=== PATIENT | female | born 1955 | race Caucasian/White ===

== ENCOUNTER 2018-02-16 10:22 | Outpatient (CLI) | payer OTHER | END 2018-02-16 15:48 | disposition home or self-care (01) | LOC: RAD 10:22 | DX: M54.5 Low back pain (principal); I11.9 Hypertensive heart disease without heart failure ==

== ENCOUNTER 2018-10-19 07:09 | Outpatient (CLI) | payer OTHER | END 2018-10-19 07:30 | disposition home or self-care (01) | LOC: RAD 07:09 → TOM 07:30 | DX: G44.221 Chronic tension-type headache, intractable (principal); R51 Headache; M54.2 Cervicalgia; M54.5 Low back pain | CPT/HCPCS: 72141 ==

== ENCOUNTER 2019-03-16 08:23 | Outpatient (CLI) | payer OTHER | END 2019-03-16 08:54 | disposition home or self-care (01) | LOC: RAD 08:23 → TOM 08:30 → RAD 08:54 | DX: R10.84 Generalized abdominal pain (principal); N83.209 Unspecified ovarian cyst, unspecified side ==

== ENCOUNTER 2019-04-24 13:58 | Outpatient (CLI) | payer OTHER | END 2019-04-24 14:00 | disposition home or self-care (01) | LOC: RAD 13:58 | DX: J18.0 Bronchopneumonia, unspecified organism (principal) ==

== ENCOUNTER → 2019-09-05 | Outpatient (CLI) | payer OTHER | END | disposition home or self-care (01) | LOC: MRI 07:45 | DX: M51.27 Other intervertebral disc displacement, lumbosacral region (principal) | CPT/HCPCS: 72148 ==

== ENCOUNTER 2019-10-01 11:07 | Outpatient (CLI) | payer OTHER | END 2019-10-01 11:10 | disposition home or self-care (01) | LOC: SONOGRAMA 11:07 | DX: K57.30 Diverticulosis of large intestine without perforation or abscess without bleeding (principal); R10.13 Epigastric pain ==

== ENCOUNTER 2020-07-11 08:04 | Outpatient (CLI) | payer OTHER | END 2020-07-11 08:40 | disposition home or self-care (01) | LOC: RAD 08:04 | PROVIDERS: ATTEND Internal Medicine | DX: M54.5 Low back pain (principal); M53.3 Sacrococcygeal disorders, not elsewhere classified; N29 Other disorders of kidney and ureter in diseases classified elsewhere ==

== ENCOUNTER 2021-03-24 09:05 | Outpatient (CLI) | payer OTHER | END 2021-03-24 09:16 | disposition home or self-care (01) | LOC: RAD 09:05 | PROVIDERS: ATTEND Internal Medicine | DX: M51.36 Other intervertebral disc degeneration, lumbar region (principal); M46.1 Sacroiliitis, not elsewhere classified ==

== ENCOUNTER 2021-04-22 07:58 | Outpatient (CLI) | payer OTHER | END 2021-04-22 08:12 | disposition home or self-care (01) | LOC: TOM 07:58 | PROVIDERS: ATTEND Internal Medicine Gastroenterology | DX: K57.30 Diverticulosis of large intestine without perforation or abscess without bleeding (principal); R10.30 Lower abdominal pain, unspecified; R10.32 Left lower quadrant pain | CPT/HCPCS: 74177; Q9965 ==

== ENCOUNTER 2022-07-05 07:16 | Outpatient (CLI) | payer OTHER | END 2022-07-05 07:18 | disposition home or self-care (01) | LOC: NUCLEAR 07:16 | PROVIDERS: ATTEND Internal Medicine Cardiovascular Disease | DX: I20.9 Angina pectoris, unspecified (principal) | CPT/HCPCS: 78452; 93017; A9500 ==

== ENCOUNTER 2022-09-30 08:39 | Outpatient (CLI) | payer OTHER | END 2022-09-30 09:37 | disposition home or self-care (01) | LOC: RAD 08:39 | PROVIDERS: ATTEND Physical Medicine & Rehabilitation Pain Medicine | DX: M54.50 Low back pain, unspecified (principal); M25.551 Pain in right hip; M25.552 Pain in left hip ==

== ENCOUNTER 2022-10-12 07:06 | Outpatient (CLI) | payer OTHER | END 2022-10-12 07:16 | disposition home or self-care (01) | LOC: SONOGRAMA 07:06 | PROVIDERS: ATTEND Internal Medicine Gastroenterology | DX: R10.13 Epigastric pain (principal) ==